=== PATIENT | female | born 1965 | race Caucasian/White ===

== ENCOUNTER 2017-11-14 22:35 | Emergency (ER) | payer MEDICARE, OTHER ==
[~2017-11-14] VITALS: Ht 162.6 cm; Wt 81.7 kg
--- OUTSIDE RECORDS SUMMARY | ~2017-11-14 | XMS | Clinical Summary ---
Demographics + + + | Address | [address] | | | [place] [address] | + + + | Home Phone | | + + + | Preferred Language | Unknown | + + + | Marital Status | Unknown | + + + | Christian Affiliation | Unknown | + + + | Race | Unknown | + + + | Ethnic Group | Unknown | + + + Author + + + | Author | [facility] | | | and Sahil | + + + | Organization | [facility] | | | and Manjitana | + + + | Address | Unknown | + + + | Phone | Unavailable | + + + Care Team Providers + +------+ + | Care Covering And Lining Supervisor Name | Role | Phone | + +------+ + PP | Unavailable | + +------+ + Allergies Not on File Current Medications Not on file Active Problems Not on file Social History + +-------+ +--------+------+ | Tobacco Use | Types | Packs/Day | Years | Date | | | | | Used | | + +-------+ +--------+------+ | Never Assessed | | | | | + +-------+ +--------+------+ + + + | Sex Assigned at | Date Recorded | | | | + + + | Not on file | | + + + Last Filed Vital Signs + + + + | Vital Sign | Reading | Time Taken | + + + + | Blood Pressure | 94/60 | 09/12/2016 0912 PDT | + + + + | Pulse | 66 | 09/12/2016911 PDT | + + + + | Temperature | - | - | + + + + | Respiratory Rate | 18 | 09/12/2016911 PDT | + + + + | Oxygen Saturation | 92% | 09/12/2016911 PDT | + + + + | Inhaled Oxygen | - | - | | Concentration | | | + + + + | Weight | 40.5 kg (89 lb 4.6 | 09/12/2016911 PDT | | | oz) | | + + + + | Height | 162.6 cm (5' 4.02") | 09/12/2016911 PDT | + + + + | Body Mass Index | 15.32 | 09/12/2016911 PDT | + + + + Plan of Treatment + + + + + | Health Maintenance | Due Date | Last Done | Comments | + + + + + | Vaccine: | | | | | Dtap/Tdap/Td (1 - | 4 | | | | Tdap) | | | | + + + + + | Cervical Cancer | | | | | Screening (Pap) | 5 | | | + + + + + | Vaccine: Influenza | | | | | (#1) | 8 | | | + + + + + Results Not on filefrom Last 3 Months
--- OUTSIDE RECORDS SUMMARY | ~2017-11-14 | XMS | Clinical Summary ---
Demographics + + + | Address | [address] | | | [place] [address] | + + + | Home Phone | | + + + | Preferred Language | Unknown | + + + | Marital Status | Unknown | + + + | Zoroastrian Affiliation | Unknown | + + + | Race | Unknown | + + + | Ethnic Group | Unknown | + + + Author + + + | Author | [facility] | | | and Sahil | + + + | Organization | [facility] | | | and Manjitana | + + + | Address | Unknown | + + + | Phone | Unavailable | + + + Care Team Providers + +------+ + | Care Composing Room Machinist Apprentice Name | Role | Phone | + [...]
[~2017-11-14 22:35] MED LIST: CLONAZEPAM1 MG PO; DOXYCYCLINE HY100 MG PO; GABAPENTIN600 MG PO; GEODON20 MG PO; LATUDA120 MG PO; MELOXICAM15 MG PO; MIRTAZAPINE45 MG PO; PERPHENAZINE4 MG PO; SERTRALINE HCL100 MG PO; TRAZODONE HCL50 MG PO
== END 2017-11-14 23:53 | disposition left against medical advice (07) ==
LOC: ED 22:35
DX: Z53.21 Procedure and treatment not carried out due to patient leaving prior to being seen by health care provider (principal)

== ENCOUNTER 2019-09-23 15:58 | Inpatient (IN) | payer MEDICARE, OTHER ==
[~2019-09-23] VITALS: Ht 162.6 cm; Wt 77.1 kg
--- OUTSIDE RECORDS SUMMARY | 2019-09-23 16:00 | XMS ---
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 Isabel has no Care Guidelines for this patient. [facility] VISIT COUNT (12 MO.) 1 MURALI Bolaños TOTAL 1 NOTE: Visits indicate total known visits. ED/C VISIT TRACKING (12 MO.) 09/23/2019 15:58 MURALI [facility] [place] TYPE: Emergency COMPLAINT: - SEIZURE INPATIENT VISIT TRACKING (12 MO.) No inpatient visits to display in this time frame [id number]
[2019-09-23] MEDS ORDERED: BUSPIRONE HCL15 MG PO (16:19)
[2019-09-23] MEDS ORDERED: OLANZAPINE15 MG PO (16:20)
[2019-09-23] MEDS ORDERED: MINIPRESS5 MG PO (16:21)
[2019-09-23] MEDS ORDERED: VITAMIN D250 MCG PO (16:21)
[2019-09-23] MEDS ORDERED: MIRTAZAPINE45 MG PO (16:22)
[2019-09-23] MEDS ORDERED: HYDROXYZINE HCL50 MG PO (16:22)
--- NOTE | 2019-09-23 21:05 | NUR ---
PT ARRIVES TO CCU ROOM 128 WITH NURSING TRANSPORTATION LEAD AND RT WEARING OXYMASK 10L, TRANSFERRED BY SLIDING TO BED, LUNGS AUSCULTATED, SPO2 91% ON 10L WITH LABORED RESP THEN PT PLACED BACK ON BIPAP. RT TO START NEB TX. PT DENIES PAIN AT THIS TIME. IS AWAKE AND ANSWERS QUESTIONS YES OR NO BUT OTHER QUESTIONS POSTPONED UNTIL RESP LESS LABORED. RESTING HR 80. GALLEGOS DRAINING LG AMOUNT CLEAR YELLOW URINE.
--- NOTE | 2019-09-23 22:30 | NUR ---
PT HAS BEEN RESTING, WEARING BIPAP WITHOUT DIFFICULTY.
--- NOTE | 2019-09-23 22:38 | NUR ---
CALL FROM DR WHALEN REQUESTING TO HAVE RT LOWER BIPAP PRESSURES AFTER SEEING ABG RESULTS.
--- NOTE | 2019-09-23 23:00 | NUR ---
RT IN TO ADJUST BIPAP SETTINGS, NOW 14/8 FIO2 35%. SPO2 93%.
--- NOTE | 2019-09-24 01:53 | NUR ---
IN TO CHECK ON PT, PT BECOMES TEARFUL RE WEARING BIPAP-BIPAP REMOVED AND PT PLACED ON 4L/NC AND SPO2 88-90% BUT RESP VERY LABORED. EXPLAINED IMPORTANCE OF BIPAP TO PT AND PLAN TO TRY TO WEAR IT TONIGHT, PT AGREES. DENIES PAIN. BIPAP REPLACED AND PT WILL TRY TO SLEEP.
--- NOTE | 2019-09-24 03:54 | NUR ---
PT COMPLAINING THAT SHE IS HUNGRY AND THIRSTY. PT REFUSING TO PUT BIPAP BACK ON, WOB IS LABORED AND TACHYPNEA, RR IS 30-40. ADVISED PT THAT SHE NEEDS TO WEAR BIPAP. TRIED TO GET PT TO ALLOW MASK AND WHEN THE MASK WAS PLACED NEAR HER FACE, SHE STARTED YELLING "YOU ARE TRYING TO KILL ME" PUSHED THE MASK AWAY AND THEN ACCUSED ME OF HOLDING HER NOSE. HER NOSE WAS NEVER TOUCHED. DID NOT PROCEDE FURTHER WITH TRYING TO GET PT TO PUT MASK BACK ON. ADVISED CCU RN AND PET GROOMER OF ACCUSATIONS.
--- NOTE | 2019-09-24 04:10 | NUR ---
INFORMED DR WHALEN OF PT REFUSAL TO WEAR BIPAP AND CURRENT VS, RESP STATUS- ORDER GIVEN TO TRY CPAP, MORPHINE AND SOLUMEDROL.
--- NOTE | 2019-09-24 04:35 | NUR ---
IN TO DISCUSS PT WEARING BIPAP, HER RESP ARE VERY LABORED AND RR 32-34, SPO2 90% ON 5L/NC. PT HAS BEEN REFUSING SINCE 299 AND HAS BEEN EMOTIONALLY LABILE CRYING AT TIMES OVER THINGS LIKE BIPAP OR POSITION OF BED THEN APOLOGIZING FOR BEING "DIFFICULT". EXPLAINED IMPORTANCE OF BIPAP AND PT STATES "I'D RATHER ". EVENTUALLY PT IS MORE AGREEABLE, OFFERED MORPHINE WHICH SHE INITIALLY REFUSES THEN AGREES TO TRY AND THEN STATES " LONG ITS NOT AN OPIATE, IM ALLERGIC TO ALL OPIATES". MORPHINE TAKEN OFF EMAR. ORDER FOR SOLUMEDROL EXPLAINED TO PT AND SHE AGREES TO TAKE IT. RT IN AND EXPLAINS CPAP TO PT, PT AGREES TO TRY WEARING MASK- IS TEARFUL AND STATES SHE IS SCARED, BUT EVENTUALLY LIES BACK AND RELAXES AND APPEARS TO BE SLEEPING WEARING MASK ON CPAP SETTING INITIALLY, THEN RT TURNED UP TO BIPAP. PT HAD ALSO REFUSED BLOOD PRESSURE CUFF- WAS CRYING AND RIPPING IT OFF AND REFUSED FURTHER BP'S FOR NOW.
--- NOTE | 2019-09-24 08:32 | NUR ---
IN PATIENT'S ROOM FOR MEDS AND ASSESSMENT. PATIENT EAGER TO HAVE SOMETHING TO EAT AND DRINK THIS AM. STILL NPO AT THIS TIME BUT GIVE SMALL AMOUNT OF WATER TO TRY. PT IS ON 6 L UPON ENTRY INTO ROOM. COARSE LUNG SOUNDS ARE APPRECIATED THROUGHOUT LUNG SOLIMAN. VERY M OIST LOOSE SOUNDING COUGH HEARD. PT ALSO STATES SHE IS EAGER TO GO HOME TODAY. EDUCATED PATIENT ON SEVERITY OF HER CURRENT ILLNESS AND IMPORTANCE OF STAYING IN HOSPITAL LONGER TO PROPERLY IMPROVE. PT NORMALLY DOES NOT REQUIRE OXYGEN AT HOME. PT AGREEABLE TO WEAR BIPAP THIS AM WHILE GETTING NEB TX. PT UNSURE OF EVENTS THAT BROUGHT HER IN BUT STATES, " I GUESS I JUST BLACKED OUT." HR IN THE 90s, SINUS. LAST BP 115/76 (84). GALLEGOS DRAINING CLOUDY, SEDIMENT FILLED URINE AT THIS TIME. IV SITE IN RIGHT HAND PART WAY OUT UPON ENTRY INTO ROOM SO THERFORE D/C. IV SITE IN LEFT HAND INFUSING ABX NOW. PT EAGER TO HAVE HER HAIR COMBED AND OFF HER NECK.
--- NOTE | 2019-09-24 08:50 | NUR ---
PATIENT ON BIPAP AT THIS TIME AND HAS BEEN ON BIPAP SINCE 824. WILL KEEP ON LONG PATIENT TOLERATES. CURRENT SETTINGS ARE 12/5 AND 35%. RR NOW 12-18 ON THIS. CONTINUE TO MONITOR.
[2019-09-24] MEDS ORDERED: OLANZAPINE20 MG PO (09:27)
[2019-09-24] MEDS ORDERED: COMBIVENT RESPIM4 GM INH (09:32)
[2019-09-24] MEDS ORDERED: SPIRIVA18 MCG INH (09:32)
--- NOTE | 2019-09-24 09:40 | NUR ---
PATIENT REMAINS ON BIPAP AT THIS TIME WITH SP02 OF 91% ON 35%. PT RESTING/SLEEPING.
--- NOTE | 2019-09-24 10:13 | NUR ---
IN PATIENT'S ROOM AT THIS TIME AFTER SHE TAKES BIPAP OFF. PT BACK ON NASAL CANNULA AT 5 L BUT SP02 STAYING 87-89%. INCREASED TO 6 L. PT USES BOTH ACAPELLA AND IS. PT HAS A VERY SHALLOW INHALATION ON IS. PT REPORTS THAT SHE FEELS BETTER AFTER WEARING THE BIPAP FOR A WHILE. DR. WHALEN OKAY WITH PATIENT EATING SOME FOOD TODAY. WILL ORDER PATIENT A SALAD FOR LUNCH.
--- NOTE | 2019-09-24 12:28 | NUR ---
DR. WHALEN IN ROOM AND VISITS WITH PATIENT. PLAN IS FOR PATIENT TO GET SOME MORE LASIX AND SOME STEROIDS. PT REMAINS ON 6 L NASAL CANNULA. PT NOW SITTING UP AND EATING LUNCH.
--- NOTE | 2019-09-24 12:57 | EKG ---
[facility] [address] [place] [address] Signed Sinus tachycardia with premature atrial complexes Left posterior fascicular block Nonspecific T wave abnormality Abnormal ECG No previous ECGs available Confirmed by VIDAL WHALEN MD ([id number]) on 09/24/2019 12:57:20 PM Electronically Signed By: VIDAL WHALEN MD 09/24/19 1257 PATIENT NAME: JASON HUTCHISON Electrocardiogram DATE OF : 63 PHYSICIAN: VIDAL WHALEN MD REPORT #: [id number] REPORT IS CONFIDENTIAL AND NOT TO BE RELEASED WITHOUT AUTHORIZATION
--- NOTE | 2019-09-24 13:49 | NUR ---
PATIENT UP TO CHAIR WITH 1 PERSON ASSIST. PT'S LINEN CHANGED. PT'S HAIR ALSO COMBED AND PLACED IN A PONY TAIL. PT GIVEN LASIX, MAGNESIUM, AND SOLUMEDROL. PATIENT'S SP02 IS NOW 94% ON 6 L NC. PATIENT AGREEABLE TO SIT IN CHAIR FOR A WHILE. PT WILL NEED NEW IV SITE FIELD START IS POSITIONAL AT THIS TIME. CALL LIGHT WITHIN REACH.
--- NOTE | 2019-09-24 15:47 | NUR ---
IN PATIENT'S ROOM FOR ASSESSMENT AND MEDICATIONS. NEW IV STARTED IN LEFT FOREARM. NEB TX DONE AND PT THEN USES ACAPELLA AND IS. PT REMAINS ON 5 L NC. EDUCATION PROVIDED TO PATIENT ABOUT CHF AND SIGNS AND SYMPTOMS. PT BACK IN BED TO REST AND WAITING FOR HER DINNER. DENIES FURTHER NEEDS. GALLEGOS DRAINED FOR 1225 ML YELLOW URINE. CALL LIGHT WITHIN REACH. PT NOTED TO HAVE SOME PURULENCE TO HER COUGH AND NOW IT'S BECOMING MORE PRODUCTIVE.CONTINUE TO MONITOR.
--- NOTE | 2019-09-24 18:53 | NUR ---
PATIENT UP TO BEDSIDE TO EAT HER DINNER. PT ACCIDENTALLY SPILLS HER SOUP ON HERSELF. PT HELPED TO CHAIR AND THEN BACK TO BED AFTER LINEN CLEANED AND NEW GOWN GIVEN. PT HAD TAKEN HER OXYGEN OFF AFTER HER SOUP SPILL AND WHEN SP02 CHECKED, IT WAS FOUND TO BE 63%. PATIENT NOW RESTING BACK IN BED AND SP02 IS IN THE MID TO UPPER 90s, SO OXYGEN TURNED DOWN TO 4 L NC.
--- NOTE | 2019-09-24 19:30 | NUR ---
REPORT RECEIVED FROM LU MARIO. PT IS RESTING IN BED WITH EYES CLOSED, APPERAS RESTFUL, SPO2 90% WEARING NC/4L.
--- NOTE | 2019-09-24 20:40 | NUR ---
IN TO DO ABX AND ASSESSMENT, PT AWAKENS EASILY-DENIES NEEDS. BACK TO SLEEP.
--- NOTE | 2019-09-24 21:15 | NUR ---
RT IN TO DO NEB TX AND PLACE PT ON BIPAP-PT AGREEABLE.
--- NOTE | 2019-09-25 00:06 | NUR ---
IN TO CHECK ON PT AND DO ASSESSMENT. SHE AWAKENS EASILY AND DENIES PAIN, REQUESTS TO HAVE A BREAK FROM THE BIPAP. PLACED ON 4L/NC AND SPO2 AT THIS TIME IS 98%.
--- NOTE | 2019-09-25 00:31 | NUR ---
PT REPORT RECIEVED. CARE OF PATIENT ASSUMED AT THIS TIME. PT RESTING WITH EYES CLOSED, BREATHING EVEN AND UNLABORED. CALL LIGHT WITHIN REACH. NO NEEDS AT THIS TIME.
--- NOTE | 2019-09-25 02:14 | NUR ---
IN ROOM FOR MEDICATION ADMINISTRATION. PT RESTING WITH EYES CLOSED. BREATHING EVEN AND UNLABORED. REMAINS ON 5 L NC WITH SATURATIONS AT 98 PERCENT. CALL LIGHT WITHIN REACH. NO FURTHER NEEDS AT THIS TIME.
--- NOTE | 2019-09-25 03:30 | NUR ---
PT OXYGEN OFF, SATURATIONS INTO THE LOW 80'S. REPLACED OXYGEN, SATURATIONS BACK UP INTO THE 90S. ASSESSMENT COMPLETED. PT LUNGS ARE COARSE WITH CRACKLES NOTED IN BOTH BASES. RR =16. CALL LIGHT WITHIN REACH. NO FURTHER NEEDS AT THIS TIME.
--- NOTE | 2019-09-25 04:00 | NUR ---
PT RESTING WITH EYES CLOSED. BREATHING EVEN AND UNLABORED O2 SATS 96 PERCENT ON 4 L NC. RR=22
--- NOTE | 2019-09-25 05:40 | NUR ---
ASSISTED PT TO SITTING POSITION ON SIDE OF BED. PT WASHED FACED AND REPOSTIONED IN THE BED. OXYGEN DOWN INTO THE 80'S, NC O2 INCREASED TO 5 L. SATS NOW BACK IN THE MID 90S. LAB IN ROOM AT THIS TIME TO DRAW BLOOD.
--- NOTE | 2019-09-25 06:00 | NUR ---
PT'S SATURATION DOWN INTO THE 80'S ON 5 L NC. PLACED ON BIPAP AT THIS TIME.
--- NOTE | 2019-09-25 07:35 | NUR ---
REPORT REC'D FROM SAVINGS COUNSELOR RN. PT RESTING ON BIPAP WITH 35%, 14/5 SETTINGS. PT AGREEABLE TO WEAR BIPAP A LITTLE LONGER THIS AM. GALLEGOS PRESENT DRAINING YELLOW SEDIMENT/CLOUDY URINE. HR IN THE 70-80s, SINUS. SP02 IS 94%, RR 19.
--- NOTE | 2019-09-25 08:12 | NUR ---
Medications reconciled using pharmacy records, patient's med list and patient interview
--- NOTE | 2019-09-25 09:17 | NUR ---
PATIENT BACK TO BED AFTER BREAKFAST AND STATES SHE WANTS TO REST. SP02 IS 88% ON 2 L, WILL INCREASE TO 3L. CONTINUE TO MONITOR.
--- NOTE | 2019-09-25 10:16 | NUR ---
PATIENT RESTING AT THIS TIME IN BED, SLEEPING ON RIGHT SIDE. SP02 97% ON 3 L, TURNED DOWN OXYGEN TO 2 L NC. HR IN THE 90s AT THIS TIME. CONTINUE TO MONITOR.
--- NOTE | 2019-09-25 11:24 | NUR ---
OXYGEN LEVEL DROPPING ON 1 L WHILE PATIENT SLEEPING. INCREASED OXYGEN TO 2 L AND PATIENT AWOKEN, ASKED TO USE IS AND ACAPELLA. LUNCH ORDERED FOR PATIENT. PATIENT STATES, "I'M JUST TIRED TODAY." RR EVEN. SP02 NOW 90%.
--- NOTE | 2019-09-25 12:27 | NUR ---
PATIENT SITTING UP ON EDGE OF BED EATING HER LUNCH.
--- NOTE | 2019-09-25 13:33 | NUR ---
DR. WHALEN IN ROOM TO SEE PATIENT. PLAN IS FOR PATIENT TO TRANSFER TO THE MEDICAL FLOOR, ROOM 108.
--- NOTE | 2019-09-25 13:48 | NUR ---
PATIENT WILL NOT MOVE TO MEDICAL FLOOR TODAY, BUT WILL STAY IN CCU TODAY AND POTENTIALLY MOVE OVER TOMORROW. ROSY WILL BE D/C. PT REQUESTING A BOWL OF FRUIT.
--- NOTE | 2019-09-25 14:03 | NUR ---
GALLEGOS D/C AND EMPTIED FOR 250 ML YELLOW URINE. PT TOELRATED WELL. PT REMAINS ON 2 L NC WITH SP02 95%. CONTINUE TO MONITOR.
--- NOTE | 2019-09-25 17:30 | NUR ---
ASSISTED PATIENT UP TO THE CAMMODE. PATIENT STABLE ON HER FEET. PATIENT DENIES SOB WITH AM[facility]UL[facility] TO [facility]. PATIENT REQUESTED TO HAVE A FEW MINUTES. LEFT PATIENT WITH THE CALL LIGHT. WILL CONTINUE TO CLOSELY MONITOR.
--- NOTE | 2019-09-25 18:35 | NUR ---
PATIENT RESTING IN BED. DENEIS ANY NEEDS. VITALS DONE. WILL CONTINUE TO CLOSELY MONITOR.
--- NOTE | 2019-09-25 19:30 | NUR ---
REPORT RECEIVED FROM [facility]. WHITEBOARD UPDATED. pt SITTING ON SIDE OF BED. NC OFF, DESAT TO 86% ON ROOM AIR. SATS >92% ON 2L O2 VIA NC. RT IN ROOM. NO REQUESTS AT THIS TIME. CALL LIGHT WITHIN REACH.
--- NOTE | 2019-09-25 20:27 | NUR ---
IN TO DO ASSESSMENT. pt SITTING ON SIDE OF BED. REQUESTED "SOMETHING CHOCOLATE" PROVIDED SOME PUDDING AND SODA. pt VERY APPRECIATIVE. ASSESSMENT DONE. pt DENIED SOB OR PAIN. STATED "I'M READY TO GO HOME." LUNG SOUNDS COARSE THROUGHOUT. SATS >92% ON 2L VIA NC. MEDICATIONS GIVEN (SEE MAR). pt ADAMANTLY REFUSED ENOXAPARIN, "I DON'T DO SHOTS" EDUCATION DONE, pt VERBALIZED UNDERSTANDING AND CONTINUED TO REFUSE; "THEY MUST HAVE DONE IT WHILE I WAS ASLEEP LAST NIGHT BECAUSE I DON'T DO SHOTS." pt REQUESTED TO REMAIN SITTING ON THE SIDE OF THE BED. WILL CALL IF SHE NEEDS TO VOID. CALL LIGHT WITHIN REACH. NO FURTHER REQUESTS AT THIS TIME.
--- NOTE | 2019-09-25 20:46 | NUR ---
CALL LIGHT ON. pt RESTING IN BED. REQUESTED THAT FAN AND LIGHT BE TURNED OFF, DONE. NO FURTHER REQUESTS AT THIS TIME. CALL LIGHT WITHIN REACH.
--- NOTE | 2019-09-25 21:52 | NUR ---
CALL LIGHT ON. pt UP TO VOID SBA. SOME URINE MISSED THE HAT. pt REPORTED PAIN IN HER ARMS AND LEGS "I HAVE THIS PAIN IN THE MORNINGS AND AT NIGHTS." NOT INCREASED FROM BASELINE PER pt. BACK TO BED. WARM BLANKET PROVIDED. NO FURTHER REQUESTS AT THIS TIME. CALL LIGHT WITHIN REACH. MAINTAINED SAT >90% WHILE AMBULATING ON 2L O2 VIA NC.
--- NOTE | 2019-09-25 22:46 | NUR ---
O2 SAT FLUCUATED FROM 86% TO 90%. NC OFF, REPLACED O2 SAT 93% ON 2L. NO REQUESTS AT THIS TIME. CALL LIGHT WITHIN REACH.
--- NOTE | 2019-09-26 00:39 | NUR ---
IN TO DO ASSESSMENT. pt WOKE TO VOICE. DIAPHORETIC. pt STATED "I GET SWEATY WITH ALL THESE BLANKETS" SKIN CLEANSED AND DRIED, TELE LEADS CHANGED. pt ASSISTED WITH REPOSITIONED. COMPLAINED OF PAIN IN ARMS AND LEGS STATING "I ALWAYS GET THESE PAINS" PAIN SUBSIDED WITH REPOSITIONING. ASSESSMENT DONE. NO CHANGE IN LUNG SOUNDS. DENIES SOB. NO REQUESTS CALL LIGHT WITHIN REACH.
--- NOTE | 2019-09-26 01:58 | NUR ---
ROUNDED ON pt. RESTING IN BED WITH EYES CLOSED, RESPIRATIONS REGULAR AND UNLABORED. NC IN PLACE. CALL LIGHT WITHIN REACH.
--- NOTE | 2019-09-26 03:30 | NUR ---
pt SITTING ON THE SIDE OF THE BED. REQUESTED TO VOID, ORIENTED, MOVED URGENTLY TO TOILET. pt NOTED THE HAT IN THE TOILET AND ATTEMPTED TO AIM FOR THE HAT BUT MISSED COMPLETELY. LARGE VOID. BACK TO BED. IMMEDIATELY FELL TO SLEEP. CALL LIGHT WITHIN REACH.
--- NOTE | 2019-09-26 04:45 | NUR ---
WOKE pt FOR ASSESSMENT. pt ORIENTED, DROWSY. ASSESSMENT DONE. pt STOOD FOR DAILY WT. BACK TO BED. VITALS RECORDED. pt REQUESTED TO SLEEP MORE. RESPIRATIONS REGULAR AND UNLABORED. CALL LIGHT WITHIN REACH.
--- NOTE | 2019-09-26 07:00 | NUR ---
Report received, orders acknowledged.
--- NOTE | 2019-09-26 07:25 | NUR ---
Echo in room to perform imaging on patient
--- NOTE | 2019-09-26 07:50 | NUR ---
Spoke with pt for CM assessment. She states she lives in [place] and is receiving assistance through [email or web address]. She is disabled since 2000 as she is physically and mentally not able to work. She is currently living at the [facility] and has a cm from [employer] who is helping her find housing. She states she is unable to walk and would like a walker. She is very concerned as she has an appt with [employer] today for med management and wants to know if she will dc prior to 1pm. Asked Dr. Hummel and he does not plan on discharging this pt. Pt updated and informed I will call [email or web address]. Called Rosa Maria from [email or web address] and was notified it will be a phone meeting and they will call her. PT will evaluate pt to see if she will need a walker.
--- NOTE | 2019-09-26 08:00 | NUR ---
Patient sleeping in bed, respirations even and unlabored. Rouses easily to voice. Patient sitting up at edge of bed with feet on floor. Assessment complete, vitals taken. Lung sounds coarse and dim throughout, tightness noted in all lobes. Generalized edema noted in bilateral lower extremities. Patient on 2LNC with an SpO2 of 93%. AM medications given. Patient denies pain. 0830 - Breakfast delivered. Patient up to chair with 1PA, stand and pivot. Reports pain in legs as ambulating. 100% of breakfast eaten. Patient watching tv, denies further needs at this time. Call light within reach.
--- NOTE | 2019-09-26 08:11 | NUR ---
Case management in room discussing POC with patient
--- NOTE | 2019-09-26 08:25 | NUR ---
Dr. Hawthorne in room to discuss POC with patient
--- NOTE | 2019-09-26 09:30 | NUR ---
Report given to SHELBI Burnham. Patient leaves unit via chair to room 108. All patient belongings collected.
--- NOTE | 2019-09-26 09:52 | NUR ---
REPORT RECEIVED FROM CCU PT TRANSFERRED TO MED SURG VIA RECLINER. ORIENTED TO ROOM CALL LIGHT IN HAND, PT AGREES SHE IS COMFORTABLE DENIES NEEDS
--- NOTE | 2019-09-26 10:33 | NUR ---
PT RESTING IN BED EYES CLOSED BREATHING EVEN AND UNLABORED
--- NOTE | 2019-09-26 13:45 | NUR ---
PT EATS 100% OF NOON MEAL, THEN APPEARS ANGRY ASKING WHEN SHE WILL BE DISCHARGED. OBVIOUSLY AGITATED. ASKED PT IF SHE WAS WEARING A NICOTINE PATCH SHE SAYS NO AND SHE REALLY WANTS TO SMOKE. CONTACTED GOT PATCH PLACED. [facility] IN TO DISCUSS PLANS FOR AFTER DC WITH THIS PT, SHE AGREES TO NOTIFY THEM AT DC AND THEY WILL PROVIDE VOUCHERS FOR FOOD AND LODGING. PT APPEARS MUCH MORE RELAXED NO LONGER APPEARS ANGRY.
--- NOTE | 2019-09-26 13:46 | NUR ---
Spoke with PT and they states pt would benefit from a walker. She was uanble to walk today due to pain. She did standing exercises. Will follow up with tomorrow.
--- NOTE | 2019-09-26 13:57 | NUR ---
PATIENT RESTING IN BED. VITAL SIGNS AND I&O DONE. CALL LIGHT WITHIN REACH. NO OTHER NEEDS AT THIS TIME
--- NOTE | 2019-09-26 15:15 | NUR ---
PT UP TO WORK WITH P/T. WELL TOLERATED, RETURNS TO RESTING IN BED
--- NOTE | 2019-09-26 16:38 | NUR ---
PT IS UPBEAT AND TALKATIVE RESTING IN BED. UP TO USE THE TOILET INDEPENDANTLY, ENCOURAGED HER TO USE THE CALL LIGHT FOR SBA. FRESH H20 AND CALL LIGHT AT BEDSIDE.
--- NOTE | 2019-09-26 17:29 | NUR ---
PATIENT RESTING IN BED. VITAL SIGNS AND I&O DONE. CALL LIGHT WITHIN REACH. NO OTHER NEEDS AT THIS TIME
--- NOTE | 2019-09-26 19:40 | NUR ---
SHIFT REPORT RECEIVED FROM NURSE CHAMBERS. PT ASLEEP IN BED, NC HAD SLIPPED FROM PT'S NOSE AND IS REPLACED AT THIS TIME. NO APPARENT DISTRESS.
--- NOTE | 2019-09-26 20:50 | NUR ---
ASSESSMENT COMPLETE. RT HAD JUST FINISHED NEB TREATMENT. PT IS ALERT AND ORIENTED, TALKATIVE AND LAYING IN BED. PT STATES SHE HAS NO PAIN BUT DOES FEEL STILL SOB. SPO2 MID 90S ON 2L O2. PT REPOSITIONED IN BED, CALL LIGHT AND BEDSIDE TABLE WITHIN REACH.
--- NOTE | 2019-09-26 21:35 | NUR ---
WENT INTO THE ROOM. SEEN PATIENT UPPER BODY LYING ON THE BED AND LEGS ARE DANGLING. HELPED PATIENT UP IN BED WITH THE HELPED OF THE MOHIT. INSTRUCTED PATIENT TO CALL WHEN GETTING UP AND BACK IN BED. O2 VIA NC BACK ON. CALL LIGHT WITHIN REACH.
--- NOTE | 2019-09-27 00:28 | NUR ---
ROUNDS COMPLETE. PT SLEEPING ON SIDE, EVEN BREATHING. NO APPARENT SIGNS OF DISTRESS.
--- NOTE | 2019-09-27 02:20 | NUR ---
ROUND COMPLETE. PT LAYING IN BED TWITCHING LEGS AND FEET. NO O2 PER NC ON. PT STATES SHE WAS UP TO BATHROOM. NC REPLACED AT 2L O2. PT REQUESTS MILK TO DRINK. THIS IS PROVIDED. ASSESSMENT COMPLETED.
--- NOTE | 2019-09-27 04:57 | NUR ---
PT COUGHING IN ROOM SO THIS NURSE WENT IN TO CHECK ON PT. PT HAD TAKEN NC OFF AGAIN. SPO2 IN HIGH 70S. NC REPLACED AND O2 INCREASED TO 3L. SPO2 RETURNED TO 91-92%. PT UP FOR DAILY WEIGHT AND BEGAN C/O PAIN IN ARMS AND LEGS AND THIS SET HER OFF AND PT BEGAN CURSING AND SAYING SHE WAS GOING HOME "NO MATTER WHAT TODAY". PT ASKED FOR A MIRROR AND WAS FRUSTRATED BY HOW SHE LOOKED AND THEN AGAIN BEGAN CURSING AND BECOMING EMOTIONAL.PT WOULD LIKE TO SPEAK TO THE DR DEE RE:DISCHARGE. VITALS SIGNS OTHERWISE STABLE.
--- NOTE | 2019-09-27 05:10 | NUR ---
PT WAS SEEN SLEEPING SEVERAL TIMES THROUGH THE NIGHT ALTHOUGH HEARD COUGHING SEVERAL TIMES AND SEEN TWITCHING AND FIDGETING MANY TIMES WELL. PT REMOVES NC SHE REPORTS IT "HURTS HER NECK". SPO2 DOES DROP QUITE DRASTICALLY WITHOUT SUPPLEMENTAL O2. PT AMBULATES IN ROOM INDEPENDENTLY ALTHOUGH WAS ENCOURAGED TO CALL FOR ASSISTANCE STATION ENGINEER FOUND PATIENT WITH LEGS HANGING OFF THE BED. PT UTILIZED CALL LIGHT INFREQUENTLY THIS SHIFT. AT MORNING VITALS, PT HAD EMOTINAL OUTBREAK. PT STATES SHE WANTS TO GO HOME TODAY "NO MATTER WHAT".
--- NOTE | 2019-09-27 07:24 | NUR ---
RECEIVED REPORT FROM PRUDENCE MARIO. PT APPEARS TO BE RESTING AT THIS TIME. CALL LIGHT WITHIN REACH BUT IN REPORT THIS RN WAS TOLD PT DOES NOT USE.
--- NOTE | 2019-09-27 07:30 | NUR ---
PATIENT SLEEPING. WITHE BOARD UPDATED. CALL LIGHT WITHIN REACH. NO OTHER NEEDS AT THIS TIME
--- NOTE | 2019-09-27 08:50 | NUR ---
Spoke with Breann. She cont. on o2 at 1 L. Wants to go home. Asked her to discuss this with the hospitalist.
--- NOTE | 2019-09-27 09:04 | NUR ---
PATIENT RESTING IN BED. VITAL SIGNS AND I&O DONE. PATIENT REFUSED TO TAKE A SHOWER TODAY BECAUSE SHE SAID THAT SHE IS GOING TO GO HOME TODAY. CALL LIGHT WITHIN REACH. NO OTHER NEEDS AT THIS TIME
--- NOTE | 2019-09-27 11:20 | NUR ---
NICK Thrasher, from [employer] in the speak with pt. She would like pt to go to a SNF. Into room with Anna Marie and pt. Anna Marie is discussing rehab with Breann. I then explained rehab and 20 days for PT for strengthing. Pt becomes very upset and yelling. Does not want to go to SNF or rehab. Wants to return to the [facility] where she has been staying. Pt reassured I cannot force her to go. She can dc wherever she wants. Discussed she will need 02 on dc and someone will need to pay for this. Pt stating she has no money. Asked Anna Marie if [employer] has funds as pt will more than likely needs 02 on dc.
--- NOTE | 2019-09-27 12:12 | NUR ---
SHELBI PICKETT RECOMMENDED I NOT VISIT PT UNTIL [facility] COUNSELOR HAS BEEN WITH PT LATER TODAY. WILL FOLLOW RECOMMENDATION
--- NOTE | 2019-09-27 12:28 | NUR ---
IN PTS ROOM TO GIVE MID DAY MEDS. PT IN GOOD SPIRITS AT THIS TIME AND ASKING TO BE RE-EDUCATED ABOUT HER MEDS. PT STATES THAT SHE HAS A GOOD UNDERSTANDING NOW!
--- NOTE | 2019-09-27 13:27 | NUR ---
PATIENT RESTING IN BED. VITAL SIGNS AND I&O DONE. CALL LIGHT WITHIN REACH. NO OTHER NEEDS AT THIS TIME
--- NOTE | 2019-09-27 14:36 | NUR ---
IN PTS ROOM GIVING SOME OF AFTERNOON MEDS. PT ALERT AND READY TO GO HOME. DISCUSSED WITH PT THAT SHE MIGHT GET TO GO HOME BUT THAT IS UP THE MD.
--- NOTE | 2019-09-27 15:00 | NUR ---
In and spoke with pt. She is asking if she can be discharged now. Let her know Dr. Leslie will see her shortly. Pt does not want to stay. Again discussed oxygen and pt stating she does not want to wait. Asked if she is leaving against medical advice and she states yes. RN notified and will complete AMA forms.
[2019-09-27] MEDS ORDERED: METOPROLOL SUCC25 MG PO ×2 (15:31→15:35)
[2019-09-27] MEDS ORDERED: FUROSEMIDE40 MG PO (15:32)
[2019-09-27] MEDS ORDERED: LASIX40 MG PO (15:34)
[2019-09-27] MEDS ORDERED: PREDNISONE20 MG PO (15:35)
[2019-09-27] MEDS ORDERED: MAG-OXIDE400 MG PO (15:36)
[2019-09-27] MEDS ORDERED: AUGMENTIN 875-1 EACH PO (15:36)
[2019-09-27] MEDS ORDERED: POTASSIUM CHLO20 ME1 PO (15:36)
--- NOTE | 2019-09-27 15:40 | NUR ---
IN PTS ROOM WITH . , POLO RN, MATT RN AND THIS RN DISCUSSED WITH PT THE RISKS OF GOING HOME AT THIS TIME IN HER CARE. PT IS STILL REQUIRING OXYGEN AND LASIX FOR TREATMENT. THIS WAS DISCUSSED IN DETAIL WITH PT TO THE IMPORTANCE OF STAYING IN THE HOSPITAL. PT STATES THAT SHE UNDERSTANDS THAT SHE NEEDS OXYGEN BUT WANTS TO GO HOME, PT DOES NOT SPECIFY WHY SHE WANTS TO GO HOME. PT IS NOT ANGRY WITH HER CARE, PT STATES THAT SHE THINKS HER CARE HAS BEEN GOOD BUT SHE JUST WANTS TO GO HOME. PT SIGNED THE AMA FORM THAT WAS THOURGHLY DISCUSSED WITH HER BY .
--- NOTE | 2019-09-27 16:00 | NUR ---
Called and spoke with pts CHW from [facility]. Notified pt has left AMA, we have prescriptions which need filled. Number received for [facility] mail order pharm. Fax number [phone]. Precscription faxed.
== END 2019-09-27 15:13 | disposition left against medical advice (07) | DRG 193 ==
LOC: ED 15:58 → CCU 19:45 → MS 09-26 09:45
PROVIDERS: ADMIT Internal Medicine
DX: J13 Pneumonia due to Streptococcus pneumoniae (principal); J96.01 Acute respiratory failure with hypoxia; G93.41 Metabolic encephalopathy; J96.02 Acute respiratory failure with hypercapnia; J44.1 Chronic obstructive pulmonary disease with (acute) exacerbation; J44.0 Chronic obstructive pulmonary disease with (acute) lower respiratory infection; I47.1 Supraventricular tachycardia; J18.8 Other pneumonia, unspecified organism; Z20.828 Contact with and (suspected) exposure to other viral communicable diseases; J84.10 Pulmonary fibrosis, unspecified; M06.9 Rheumatoid arthritis, unspecified; F31.9 Bipolar disorder, unspecified; K75.9 Inflammatory liver disease, unspecified; K76.1 Chronic passive congestion of liver; D50.9 Iron deficiency anemia, unspecified; E87.6 Hypokalemia; I50.89 Other heart failure; Z88.5 Allergy status to narcotic agent; Z79.899 Other long term (current) drug therapy; Z88.6 Allergy status to analgesic agent
CPT/HCPCS: 36415; 36600; 70450; 71045; 71250; 80048; 80053; 80076; 81001; 82607; 82728; 82746; 82800; 82803; 83036; 83540; 83605; 83735; 83880; 84466; 84484; 85025; 85045; 86431; 86704; 86706; 86709; 86803; 87077; 87088; 87186; 87340; 93005; 93010; 93306; 94640; 94660; 94667; 94668; 94760; 94761; 96374; 96375; 97116; 97162; 97530; 99285-25; 99406; C9803; J0295; J1650; J1940; J2543; J2930; J3475; J3480; J7512; U0002